=== PATIENT | male | born 1995 | race Caucasian/White ===

== ENCOUNTER 2024-01-06 22:27 | Emergency (ER) | payer OTHER ==
[2024-01-06] MEDS ORDERED: Rabies Immune Globulin PF 150 Units/ML 2 ML SDV IM ONE (22:51)
[2024-01-06] MEDS: Acetaminophen 325 MG Tab PO ONE (23:30)
[2024-01-06] MEDS: Diphtheria,Pertussis(Acell),Tetanus Vaccine 0.5 ML Syringe IM ONE (23:30)
[2024-01-06] MEDS: Rabies Vaccine (Avian) 2.5 Unit Inj Kit IM ONE (23:36)
[2024-01-06] MEDS: Rabies Immune Globulin/PF (HyperRAB) 300 UNIT/ML 5 ML SDV IM ONE (23:39)
== END 2024-01-07 00:30 | disposition home or self-care (01) ==
LOC: JD.ED 22:27
DX: S61.052A Open bite of left thumb without damage to nail, initial encounter (principal); W54.0XXA Bitten by dog, initial encounter
CPT/HCPCS: 90375; 90471; 90675; 90715; 96372; 99283; A9270

== ENCOUNTER 2025-02-24 18:49 | Emergency (ER) | payer OTHER ==
[2025-02-24] MEDS: Amoxicillin/Clavulanate K 875-125 MG Tab PO ONE (19:31)
== END 2025-02-24 19:45 | disposition home or self-care (01) ==
LOC: JD.ED 18:49
DX: S30.810A Abrasion of lower back and pelvis, initial encounter (principal); Z90.49 Acquired absence of other specified parts of digestive tract; W54.0XXA Bitten by dog, initial encounter
CPT/HCPCS: 99283; A9270; 99282